=== PATIENT | male | born 1955 | race Caucasian/White ===

== ENCOUNTER → 2016-12-31 | Outpatient (CLI) | payer OTHER ==
--- NOTE | 2016-12-31 15:42 | XR ---
EXAMINATION TYPE: XR chest 2V DATE OF EXAM: 12/31/2016 HISTORY: R05 cough. REFERENCE: None. FINDINGS: The lungs are clear. Pleural spaces are clear. Heart size is normal. IMPRESSION: NORMAL CHEST.
== END | disposition home or self-care (01) ==
LOC: RADXRMAIN 14:05
PROVIDERS: ATTEND Internal Medicine Geriatric Medicine
DX: R05 Cough (principal)
CPT/HCPCS: 71020

== ENCOUNTER 2018-09-04 14:14 | Emergency (ER) | payer OTHER ==
--- NOTE | 2018-09-04 15:07 | ED ---
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 He complains of headache and hamstring pain for 3 days. Patient states he has been in [place] for the past week and has been doing a lot of walking. He states the headache is at the sides of his head primarily and is worsened with movement and bright light. He states that the headache is throbbing and feels similar to when he has had meningitis in the past. His blood pressure is elevated in the ER, however the patient states that he has taken his blood pressure medication today. Patient denies any recent fever, chills, runny nose, shortness of breath, chest pain, abdominal pain, nausea or vomiting, numbness or tingling, dysuria or hematuria, constipation or diarrhea, visual changes, dizziness, or any other complaints. ( Shelby Phelps) - Related Data Home Medications Medication Instructions Recorded Confirmed Aspirin EC [Ecotrin Low Dose] 81 mg PO HS 06/23/14 09/04/18 Atorvastatin [Lipitor] 10 mg PO HS 06/23/14 09/04/18 amLODIPine BESYLATE [Norvasc] 5 mg PO DAILY 06/23/14 09/04/18 Multivitamin/Iron/Folic Acid 1 tab PO DAILY 09/12/14 09/04/18 [Centrum Complete Multivit Tab] ALPRAZolam [Xanax] 0.25 mg PO BID PRN 09/04/18 09/04/18 Losartan Potassium 50 mg PO DAILY 09/04/18 09/04/18 Naproxen Sodium [Aleve] 220 mg PO DAILY 09/04/18 09/04/18 Temazepam [Restoril] 15 mg PO HS PRN 09/04/18 09/04/18 Previous Rx's Medication Instructions Recorded Ondansetron Odt [Zofran Odt] 4 mg PO Q8HR PRN #21 tab 09/04/18 valACYclovir HCL [Valacyclovir] 1,000 mg PO Q12HR 7 Days 09/04/18 Allergies Allergy/AdvReac Type Severity Reaction Status Date / Time venom-honey bee Allergy Rash/Hives Verified 09/04/18 16:05 [bee venom (honey bee)] Review of Systems ROS Other: All systems not noted in ROS Statement are negative. <Arsenio Bentley - Last Filed: 09/04/18 17:24> ROS Other: All systems not noted in ROS Statement are negative. <Shelby Phelps - Last Filed: 09/04/18 20:37> ROS Statement: Those systems with pertinent positive or pertinent negative responses have been documented in the HPI. Past Medical History Past Medical History: Hyperlipidemia, Hypertension, Osteoarthritis (OA), Prostate Disorder, Sleep Apnea/CPAP/BIPAP Additional Past Medical History / Comment(s): hx of having viral menigits x2 in past, pre skin ca removed, beginnings of cataracts, constipated last bm was friday05-26-16 History of Any Multi-Drug Resistant Organisms: None Reported Past Surgical History: Joint Replacement, Orthopedic Surgery, Tonsillectomy Additional Past Surgical History / Comment(s): 09/12/14 Total R hip arthroplasty. michele rotator cuff sx,06/2014 rt hip arthroscopy and osteoplasty femoral head,colonoscopy/polypectomy(benign) Past Anesthesia/Blood Transfusion Reactions: Motion Sickness, Postoperative Nausea & Vomiting (PONV) Past Psychological History: No Psychological Hx Reported Smoking Status: Current some day smoker Past Alcohol Use History: Occasional Past Drug Use History: None Reported - Past Family History Brother(s) Family Medical History: Cancer Additional Family Medical History / Comment(s): TUMOR ON ADRENAL GLAND Father Family Medical History: CVA/TIA Additional Family Medical History / Comment(s): at age 53 Mother Family Medical History: Osteoarthritis (OA) Additional Family Medical History / Comment(s): djd, knees and hip replacments. mom is alive adn at age 97 still lives by herself. <Shelby Phelps - Last Filed: 09/04/18 20:37> General Exam Limitations: no limitations General appearance: alert, in no apparent distress Head exam: Present: atraumatic, normocephalic Eye exam: Present: normal appearance, PERRL, EOMI ENT exam: Present: normal oropharynx, TM's normal bilaterally, normal external ear exam Neck exam: Present: full ROM, other (No neck pain with ROM.). Absent: tenderness Respiratory exam: Present: normal lung sounds bilaterally. Absent: wheezes, rales, rhonchi Cardiovascular Exam: Present: regular rate, normal rhythm GI/Abdominal exam: Present: soft, normal bowel sounds. Absent: distended, tenderness Extremities exam: Present: full ROM. Absent: calf tenderness Back exam: Absent: tenderness Neurological exam: Present: alert, oriented X3, CN II-XII intact. Absent: motor sensory deficit Skin exam: Present: warm, dry <Shelby Phelps - Last Filed: 09/04/18 20:37> Vital Signs 09/04/18 09/04/18 09/04/18 14:16 14:46 19:05 Temperature 97.7 F Pulse Rate 78 Respiratory 18 Rate Blood Pressure 189/101 176/108 192/110 O2 Sat by Pulse 98 96 Oximetry 09/04/18 09/04/18 09/04/18 19:10 19:20 19:30 Temperature Pulse Rate Respiratory Rate Blood Pressure 192/110 192/110 192/110 O2 Sat by Pulse 98 97 96 Oximetry 09/04/18 09/04/18 09/04/18 19:40 19:50 20:00 Temperature 98.1 F Pulse Rate 87 Respiratory 16 Rate Blood Pressure 192/110 192/110 192/110 O2 Sat by Pulse 96 96 95 Oximetry 09/04/18 09/04/18 09/04/18 20:10 20:30 20:35 Temperature Pulse Rate 82 80 Respiratory 18 18 Rate Blood Pressure 192/110 173/109 160/97 O2 Sat by Pulse 96 96 97 Oximetry Procedures - Lumbar Puncture Consent Obtained: verbal consent Indication for Procedure: headache Patient Position: sitting upright/leaning forward Skin Prep: 0.5% Chlorhexidine/Alcohol Local Anesthetic Used: Lidocaine 1% Spinal Needle Gauge: 20G Spinal Needle Length: 4in Fluid Initially Obtained: clear Complications: none Patient Tolerated Procedure: well <Arsenio Bentley - Last Filed: 09/04/18 17:24> Medical Decision Making <Arsenio Bentley - Last Filed: 09/04/18 17:24> - Lab Data Result diagrams: 09/04/18 16:40 09/04/18 16:40 <Shelby Phelps - Last Filed: 09/04/18 20:37> - Medical Decision Making I, Magdy Bentley, personally saw and examined the patient. I have reviewed and agree with the PA findings, including all diagnostic interpretations and treatment plans as written unless otherwise stated. I was present for the almanza portions of any procedures performed and the inclusive time noted for any critical care statement. I'll, Dr. Hardin will be taking over the care of this patient at 5 PM (Arsenio Bentley) CT of the brain reveals no acute intracranial process. Mild mucosal thickening , pansinusitis similar to the prior of 2016. Influenza A and B are negative. CSF Tot Nucleated Cells is 184. CSF Total Protein is 129. Awaiting culture results. Patient will be discharged with prescription for valacyclovir and Zofran. Case discussed in detail with attending physicians Dr. Bentley and Dr. Hardin. (Shelby Phelps) - Lab Data Lab Results 09/04/18 09/04/18 09/04/18 Range/Units 16:30 16:40 16:40 WBC 9.7 (3.8-10.6) k/uL RBC 4.98 (4.30-5.90) m/uL Hgb 15.5 (13.0-17.5) gm/dL Hct 46.6 (39.0-53.0) % MCV 93.7 (80.0-100.0) fL MCH 31.2 (25.0-35.0) pg MCHC 33.3 (31.0-37.0) g/dL RDW 13.3 (11.5-15.5) % Plt Count 224 (150-450) k/uL Neutrophils % 72 % Lymphocytes % 19 % Monocytes % 5 % Eosinophils % 1 % Basophils % 0 % Neutrophils # 7.0 (1.3-7.7) k/uL Lymphocytes # 1.9 (1.0-4.8) k/uL Monocytes # 0.5 (0-1.0) k/uL Eosinophils # 0.1 (0-0.7) k/uL Basophils # 0.0 (0-0.2) k/uL Sodium 142 (137-145) mmol/L Potassium 4.1 (3.5-5.1) mmol/L Chloride 107 (98-107) mmol/L Carbon Dioxide 26 (22-30) mmol/L Anion Gap 9 mmol/L BUN 12 (9-20) mg/dL Creatinine 0.92 (0.66-1.25) mg/dL Est GFR (CKD-EPI)AfAm >90 (>60 ml/min/1.73 sqM) Est GFR (CKD-EPI)NonAf 89 (>60 ml/min/1.73 sqM) Glucose 106 H (74-99) mg/dL Plasma Lactic Acid Teo (0.7-2.0) mmol/L Calcium 9.5 (8.4-10.2) mg/dL Total Bilirubin 0.8 (0.2-1.3) mg/dL AST 24 (17-59) U/L ALT 52 (21-72) U/L Alkaline Phosphatase 72 (38-126) U/L Total Protein 7.5 (6.3-8.2) g/dL Albumin 4.6 (3.5-5.0) g/dL Urine Color Urine Appearance (Clear) Urine pH (5.0-8.0) Ur Specific [place] (1.001-1.035) Urine Protein (Negative) Urine Glucose (UA) (Negative) Urine Ketones (Negative) Urine Blood (Negative) Urine Nitrite (Negative) Urine Bilirubin (Negative) Urine Urobilinogen (<2.0) mg/dL Ur Leukocyte Esterase (Negative) CSF Tube Number CSF Volume CSF Appearance CSF Color CSF RBC (0-10) u/L CSF Tot Nucleated Cells (0-5) u/L CSF Mononuclear WBCs % % CSF Polynuclear WBCs % % CSF Glucose (40-70) mg/dL CSF Total Protein (12-60) mg/dL Influenza Type A RNA Not Detected (Not Detectd) Influenza Type B (PCR) Not Detected (Not Detectd) 09/04/18 09/04/18 09/04/18 Range/Units 16:40 16:40 17:22 WBC (3.8-10.6) k/uL RBC (4.30-5.90) m/uL Hgb (13.0-17.5) gm/dL Hct (39.0-53.0) % MCV (80.0-100.0) fL MCH (25.0-35.0) pg MCHC (31.0-37.0) g/dL RDW (11.5-15.5) % Plt Count (150-450) k/uL Neutrophils % % Lymphocytes % % Monocytes % % Eosinophils % % Basophils % % Neutrophils # (1.3-7.7) k/uL Lymphocytes # (1.0-4.8) k/uL Monocytes # (0-1.0) k/uL Eosinophils # (0-0.7) k/uL Basophils # (0-0.2) k/uL Sodium (137-145) mmol/L Potassium (3.5-5.1) mmol/L Chloride (98-107) mmol/L Carbon Dioxide (22-30) mmol/L Anion Gap mmol/L BUN (9-20) mg/dL Creatinine (0.66-1.25) mg/dL Est GFR (CKD-EPI)AfAm (>60 ml/min/1.73 sqM) Est GFR (CKD-EPI)NonAf (>60 ml/min/1.73 sqM) Glucose (74-99) mg/dL Plasma Lactic Acid Teo 1.2 (0.7-2.0) mmol/L Calcium (8.4-10.2) mg/dL Total Bilirubin (0.2-1.3) mg/dL AST (17-59) U/L ALT (21-72) U/L Alkaline Phosphatase (38-126) U/L Total Protein (6.3-8.2) g/dL Albumin (3.5-5.0) g/dL Urine Color Light Yellow Urine Appearance Clear (Clear) Urine pH 6.0 (5.0-8.0) Ur Specific [place] 1.010 (1.001-1.035) Urine Protein Negative (Negative) Urine Glucose (UA) Negative (Negative) Urine Ketones Negative (Negative) Urine Blood Negative (Negative) Urine Nitrite Negative (Negative) Urine Bilirubin Negative (Negative) Urine Urobilinogen <2.0 (<2.0) mg/dL Ur Leukocyte Esterase Negative (Negative) CSF Tube Number 4 CSF Volume 1.0 CSF Appearance Clear CSF Color Colorless CSF RBC 6 (0-10) u/L CSF Tot Nucleated Cells 184 H* (0-5) u/L CSF Mononuclear WBCs % 92 % CSF Polynuclear WBCs % 8 % CSF Glucose 65 (40-70) mg/dL CSF Total Protein 129 H (12-60) mg/dL Influenza Type A RNA (Not Detectd) Influenza Type B (PCR) (Not Detectd) Disposition <BentleyArsenio - Last Filed: 09/04/18 17:24> Is patient prescribed a controlled substance at d/c from ED?: No <Shelby Phelps - Last Filed: 09/04/18 20:37> Clinical Impression: CSF abnormal Disposition: HOME SELF-CARE Condition: Good Instructions (If sedation given, give patient instructions): Acute Headache (ED ) Additional Instructions: Follow-up with your PCP in 1 to 2 days. Take valacyclovir as prescribed. Please call back for your culture results. Return to the emergency department if your symptoms worsen or other concerns. Prescriptions: Ondansetron Odt [Zofran Odt] 4 mg PO Q8HR PRN #21 tab PRN Reason: Nausea valACYclovir HCL [Valacyclovir] 1,000 mg PO Q12HR 7 Days Referrals: Khanh Gregory MD [Primary Care Provider] - 1-2 days
--- NOTE | 2018-09-04 16:11 | CT ---
EXAMINATION TYPE: CT brain wo con DATE OF EXAM: 09/04/2018 COMPARISON: 05/28/2016 HISTORY: Headache with fever after travel CT DLP: 1201.4 mGycm Automated exposure control for dose reduction was used. FINDINGS: There is symmetric prominence of the peripheral sulci and to a lesser degree of the ventricular syste m although similar to the prior of 2016. Low-lying cerebellar tonsils are similar to prior. Nino-whit e matter interface is maintained. No acute intracranial hemorrhage, midline shift or mass effect. Pun ctate dystrophic calcifications are seen within the left basal ganglia. Orbits are symmetric. Lenses are in place. There is mild mucosal thickening of the left maxillary sinus there is circumferential a nd polypoid nature. Scant mucosal thickening is seen in the right maxillary sinus is. Bilateral middl e nasal turbinate nonobstructive angus bullosa are seen. Mild mucosal thickening is present within t he frontal and ethmoid sinuses. Mastoid air cells are well aerated. Calvarium appears intact. IMPRESSION: 1. NO ACUTE INTRACRANIAL PROCESS. 2. MILD MUCOSAL THICKENING, PANSINUSITIS SIMILAR TO THE PRIOR OF 2016.
[2018-09-04 17:39] LABS: Appearance,CSF Clear; CSF Tube Number 4
[2018-09-04 17:41] LABS: Basophils % (A) 0 %; Eosinophils # (A) 0.1 k/uL (0-0.7); Eosinophils % (A) 1 %; HCT 46.6 % (39.0-53.0); HGB 15.5 gm/dL (13.0-17.5); Lymphocytes # (A) 1.9 k/uL (1.0-4.8); Lymphocytes % (A) 19 %; MCH 31.2 pg (25.0-35.0); MCHC 33.3 g/dL (31.0-37.0); MCV 93.7 fL (80.0-100.0); Mean Platelet Volume 6.9; Monocytes # (A) 0.5 k/uL (0-1.0); Monocytes % (A) 5 %; Neutrophils % (A) 72 %; Platelet Count 224 k/uL (150-450); RBC 4.98 m/uL (4.30-5.90); RDW 13.3 % (11.5-15.5); WBC 9.7 k/uL (3.8-10.6)
[2018-09-04 17:42] LABS: Appearance,Urine Clear (Clear); Bilirubin,Urine Negative (Negative); Blood,Urine Negative (Negative); Color,Urine Light Yellow; Glucose,Urine (UA) Negative (Negative); Ketones,Urine Negative (Negative); Leukocyte Esterase,Urine Negative (Negative); Nitrite,Urine Negative (Negative); Protein,Urine Negative (Negative); Urobilinogen,Urine <2.0 mg/dL (<2.0)
[2018-09-04 17:57] LABS: ALT 52 U/L (21-72); AST 24 U/L (17-59); Albumin 4.6 g/dL (3.5-5.0); Alkaline Phosphatase 72 U/L (38-126); Anion Gap 9 mmol/L; Blood Urea Nitrogen 12 mg/dL (9-20); Calcium 9.5 mg/dL (8.4-10.2); Carbon Dioxide 26 mmol/L (22-30); Chloride 107 mmol/L (98-107); Glucose 106 mg/dL (74-99); Potassium 4.1 mmol/L (3.5-5.1); Sodium 142 mmol/L (137-145); Total Bilirubin 0.8 mg/dL (0.2-1.3); Total Protein 7.5 g/dL (6.3-8.2)
[2018-09-04 17:59] LABS: Glucose,CSF 65 mg/dL (40-70); Total Protein,CSF 129 mg/dL (12-60)
[2018-09-04 18:10] LABS: Red Blood Cell,CSF 6 u/L (0-10)
[2018-09-04 18:11] LABS: Nucleated Cells, CSF 184 u/L (0-5)
[2018-09-04 18:22] LABS: Diff, Total Cells Cnt, CSF 100; Mononuclear WBC,CSF 92 %; Polynuclear WBC,CSF 8 %
[2018-09-04] MEDS ORDERED: SODIUM CHLORIDE 0.9% 1,000 ML IV SCH (18:30)
[2018-09-04] MEDS ORDERED: ACYCLOVIR SODIUM 1,000 MG in SODIUM CHLORIDE 0.9% 250 ML IV ONE (18:30)
[2018-09-04] MEDS ORDERED: ONDANSETRON 4 MG/2 ML VIAL IVP STA (19:19)
[2018-09-04] MEDS ORDERED: LABETALOL SYRINGE 5 MG/ML IVP STA (20:23)
[2018-09-04 20:32] VITALS: RESP 18
[2018-09-04 21:00] VITALS: BP 159/101; PULSE 70; TEMP 98
[2018-09-05] MEDS ORDERED: ACYCLOVIR SODIUM 1,000 MG in SODIUM CHLORIDE 0.9% 250 ML IV SCH (04:00)
== END 2018-09-04 21:00 | disposition home or self-care (01) ==
LOC: EC 14:14
DX: R83.9 Unspecified abnormal finding in cerebrospinal fluid (principal); J32.4 Chronic pansinusitis; E78.5 Hyperlipidemia, unspecified; I10 Essential (primary) hypertension; M19.90 Unspecified osteoarthritis, unspecified site; G47.30 Sleep apnea, unspecified; F17.200 Nicotine dependence, unspecified, uncomplicated; Z79.82 Long term (current) use of aspirin; Z79.899 Other long term (current) drug therapy; Z91.030 Bee allergy status; Z96.641 Presence of right artificial hip joint; Z85.828 Personal history of other malignant neoplasm of skin
CPT/HCPCS: 99284; 62270; 96365; 96375 ×2; 36415; 87529; 84157; 80053; 82945; 83605; 85025; 89050; 81003; 87070; 87205; 87502; 70450; J0133; J2405

== ENCOUNTER 2018-09-07 16:21 | Inpatient (IN) | payer OTHER ==
--- NOTE | 2018-09-07 17:34 | ED ---
Weakness HPI - General Chief complaint: Recheck/Abnormal Lab/Rx Stated complaint: Sent by Nicole Time Seen by Provider: 09/07/18 17:28 Source: patient, RN notes reviewed, old records reviewed Mode of arrival: ambulatory Limitations: no limitations - History of Present Illness Initial comments: This is a 63-year-old male the ER for evaluation. Patient resents today for evaluation of headache and weakness. Patient was seen prior in the hospital for evaluation regarding headache. Patient had LP today. Patient was called today for LP results secondary to abnormal lumbar puncture. Patient himself states he feels marginally well denies current fever, no nausea vomiting no chest pain no bowel pain. MD Complaint: generalized weakness (And headache) -: days(s) Location: generalized Severity: mild Severity scale (1-10): 2 Consistency: constant Improves with: none Worsens with: none Context: new medication, recent illness Associated Symptoms: fever/chills, headaches, myalgias - Related Data Home Medications Medication Instructions Recorded Confirmed Aspirin EC [Ecotrin Low Dose] 81 mg PO HS 06/23/14 09/07/18 Atorvastatin [Lipitor] 10 mg PO HS 06/23/14 09/07/18 amLODIPine BESYLATE [Norvasc] 5 mg PO DAILY 06/23/14 09/07/18 Multivitamin/Iron/Folic Acid 1 tab PO DAILY 09/12/14 09/07/18 [Centrum Complete Multivit Tab] ALPRAZolam [Xanax] 0.25 mg PO BID PRN 09/04/18 09/07/18 Losartan Potassium 50 mg PO DAILY 09/04/18 09/07/18 Naproxen Sodium [Aleve] 220 mg PO DAILY 09/04/18 09/07/18 Temazepam [Restoril] 15 mg PO HS PRN 09/04/18 09/07/18 Previous Rx's Medication Instructions Recorded Ondansetron Odt [Zofran Odt] 4 mg PO Q8HR PRN #21 tab 09/04/18 valACYclovir HCL [Valacyclovir] 1,000 mg PO Q12HR 7 Days 09/04/18 Allergies Allergy/AdvReac Type Severity Reaction Status Date / Time venom-honey bee Allergy Rash/Hives Verified 09/07/18 17:49 [bee venom (honey bee)] Review of Systems ROS Statement: Those systems with pertinent positive or pertinent negative responses have been documented in the HPI. ROS Other: All systems not noted in ROS Statement are negative. Past Medical History Past Medical History: Hyperlipidemia, Hypertension, Osteoarthritis (OA), Prostate Disorder, Sleep Apnea/CPAP/BIPAP Additional Past Medical History / Comment(s): hx of having viral menigits x2 in past, pre skin ca removed, beginnings of cataracts, constipated last bm was friday05-26-16 History of Any Multi-Drug Resistant Organisms: None Reported Past Surgical History: Joint Replacement, Orthopedic Surgery, Tonsillectomy Additional Past Surgical History / Comment(s): 09/12/14 Total R hip arthroplasty. michele rotator cuff sx,06/2014 rt hip arthroscopy and osteoplasty femoral head,colonoscopy/polypectomy(benign) Past Anesthesia/Blood Transfusion Reactions: Motion Sickness, Postoperative Nausea & Vomiting (PONV) Past Psychological History: No Psychological Hx Reported Smoking Status: Current some day smoker Past Alcohol Use History: Occasional Past Drug Use History: None Reported - Past Family History Brother(s) Family Medical History: Cancer Additional Family Medical History / Comment(s): TUMOR ON ADRENAL GLAND Father Family Medical History: CVA/TIA Additional Family Medical History / Comment(s): at age 53 Mother Family Medical History: Osteoarthritis (OA) Additional Family Medical History / Comment(s): djd, knees and hip replacments. mom is alive adn at age 97 still lives by herself. General Exam Limitations: no limitations General appearance: alert, in no apparent distress Head exam: Present: atraumatic, normocephalic, normal inspection Eye exam: Present: normal appearance, PERRL, EOMI. Absent: scleral icterus, conjunctival injection, periorbital swelling ENT exam: Present: normal exam, mucous membranes moist Neck exam: Present: normal inspection. Absent: tenderness, meningismus, lymphadenopathy Respiratory exam: Present: normal lung sounds bilaterally. Absent: respiratory distress, wheezes, rales, rhonchi, stridor Cardiovascular Exam: Present: regular rate, normal rhythm, normal heart sounds. Absent: systolic murmur, diastolic murmur, rubs, gallop, clicks GI/Abdominal exam: Present: soft, normal bowel sounds. Absent: distended, tenderness, guarding, rebound, rigid Extremities exam: Present: normal inspection, full ROM, normal capillary refill. Absent: tenderness, pedal edema, joint swelling, calf tenderness Back exam: Present: normal inspection Neurological exam: Present: alert, oriented X3, CN II-XII intact Psychiatric exam: Present: normal affect, normal mood Skin exam: Present: warm, dry, intact, normal color. Absent: rash Course Vital Signs 09/07/18 16:57 Temperature 98.4 F Pulse Rate 78 Respiratory 18 Rate Blood Pressure 179/80 O2 Sat by Pulse 97 Oximetry - Reevaluation(s) Reevaluation #1: 09/07/18 19:08 Medical record is reviewed as well as CSF Reevaluation #2: 09/07/18 19:08 Patient is to be admitted on acyclovir EKG Findings - EKG Comments: EKG Findings:: EKG shows sinus rhythm rate of 64, FL 176, QRS 96, QTc 414 Medical Decision Making - Medical Decision Making 63 male the ER for evaluation presents today for evaluation regarding follow-up of lab results. Positive CSF for HSV, patient be admitted for herpes encephalitis - Lab Data Result diagrams: 09/07/18 18:39 Lab Results 09/07/18 Range/Units 18:39 WBC 7.2 (3.8-10.6) k/uL RBC 5.10 (4.30-5.90) m/uL Hgb 16.3 (13.0-17.5) gm/dL Hct 47.3 (39.0-53.0) % MCV 92.8 (80.0-100.0) fL MCH 31.9 (25.0-35.0) pg MCHC 34.4 (31.0-37.0) g/dL RDW 13.2 (11.5-15.5) % Plt Count 226 (150-450) k/uL Neutrophils % 58 % Lymphocytes % 29 % Monocytes % 6 % Eosinophils % 4 % Basophils % 1 % Neutrophils # 4.2 (1.3-7.7) k/uL Lymphocytes # 2.1 (1.0-4.8) k/uL Monocytes # 0.4 (0-1.0) k/uL Eosinophils # 0.3 (0-0.7) k/uL Basophils # 0.0 (0-0.2) k/uL Disposition Clinical Impression: Meningitis, Encephalitis due to human herpes simplex virus (HSV) Disposition: ADMITTED IP TO THIS HOSP Condition: Fair Is patient prescribed a controlled substance at d/c from ED?: No Referrals: Khanh Gregory MD [Primary Care Provider] - 1-2 days
[2018-09-07] MEDS ORDERED: SODIUM CHLORIDE 0.9% 1,000 ML IV STA ×2 (17:58)
[2018-09-07] MEDS ORDERED: SODIUM CHLORIDE 0.9% 500 ML 500 ML IV STA (17:58)
[2018-09-07 18:53] LABS: Basophils % (A) 1 %; Eosinophils # (A) 0.3 k/uL (0-0.7); Eosinophils % (A) 4 %; HCT 47.3 % (39.0-53.0); HGB 16.3 gm/dL (13.0-17.5); Lymphocytes # (A) 2.1 k/uL (1.0-4.8); Lymphocytes % (A) 29 %; MCH 31.9 pg (25.0-35.0); MCHC 34.4 g/dL (31.0-37.0); MCV 92.8 fL (80.0-100.0); Mean Platelet Volume 7.3; Monocytes # (A) 0.4 k/uL (0-1.0); Monocytes % (A) 6 %; Neutrophils # (A) 4.2 k/uL (1.3-7.7); Neutrophils % (A) 58 %; Platelet Count 226 k/uL (150-450); RDW 13.2 % (11.5-15.5); WBC 7.2 k/uL (3.8-10.6)
[2018-09-07 19:07] LABS: INR 0.9 (<1.2); Partial Thromboplastin Time 25.9 sec (22.0-30.0); Prothrombin Time 10.2 sec (9.0-12.0)
[2018-09-07 19:10] LABS: Appearance,Urine Clear (Clear); Bilirubin,Urine Negative (Negative); Blood,Urine Negative (Negative); Color,Urine Light Yellow; Glucose,Urine (UA) Negative (Negative); Ketones,Urine Negative (Negative); Leukocyte Esterase,Urine Negative (Negative); Nitrite,Urine Negative (Negative); Protein,Urine Negative (Negative); Specific Gravity,Urine 1.012 (1.001-1.035); Urobilinogen,Urine <2.0 mg/dL (<2.0)
[2018-09-07 19:12] LABS: Albumin 4.7 g/dL (3.5-5.0); Calcium 9.8 mg/dL (8.4-10.2); Total Bilirubin 0.8 mg/dL (0.2-1.3); Total Protein 7.7 g/dL (6.3-8.2)
[2018-09-07] MEDS ORDERED: LABETALOL SYRINGE 5 MG/ML IVP STA (19:41)
[2018-09-07] MEDS: ACYCLOVIR SODIUM IV SCH (22:38)
[2018-09-07] MEDS: SODIUM CHLORIDE 0.9% IV SCH (22:38)
[2018-09-07 23:02] VITALS: BMI 31.0
[2018-09-08] MEDS: SODIUM CHLORIDE 0.9% IV SCH ×3 (05:58→21:01)
[2018-09-08] MEDS: ACYCLOVIR SODIUM IV SCH ×3 (05:58→21:01)
[2018-09-08] MEDS: LOSARTAN 50 MG TAB PO SCH (08:15)
[2018-09-08] MEDS: amLODIPine 5 MG TAB PO SCH (08:15)
[2018-09-08] MEDS ORDERED: ALPRAZolam 0.25 MG TAB PO PRN (09:00)
--- NOTE | 2018-09-08 09:01 | P.CONS ---
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 He gives history of viral meningitis probably 8 years ago and previously 29 years ago. He states he was in [place] for one week on business and then developed throbbing type headache while he was there including a backache. He denies having any fever or chills. He felt was similar to the type of headache he had before with meningitis. He came back home on Friday and came into [facility] emergency center where he was found to be afebrile, influenza testing was negative CT of the brain was negative. Lumbar puncture was done and patient was discharged on valacyclovir and Zofran. His culture showed no organisms and no growth after 72 hours. 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 He states he has been taking the valacyclovir at home and at this time his headache is only an occasional "twing." Patient has been started on IV acyclovir. Review of Systems All systems: negative Constitutional: Reports fatigue, Reports weakness, Denies anorexia, Denies chills, Denies fever, Denies poor appetite, Denies weight loss Eyes: denies blurred vision, denies pain, denies photophobia Ears, nose, mouth and throat: Reports headache, Denies dysphagia, Denies mouth pain, Denies nasal congestion, Denies nasal discharge, Denies sore throat, Denies vertigo Cardiovascular: Denies chest pain, Denies dyspnea on exertion, Denies edema, Denies leg edema, Denies shortness of breath, Denies syncope Respiratory: Denies cough, Denies cough with sputum, Denies dyspnea, Denies excessive sputum, Denies hemoptysis, Denies home oxygen, Denies wheezing Gastrointestinal: Denies abdominal pain, Denies diarrhea, Denies loss of appetite, Denies melena, Denies nausea, Denies vomiting Genitourinary: Denies dysuria, Denies urinary frequency, Denies urinary retention Musculoskeletal: Denies frequent falls, Denies gait dysfunction, Denies muscle weakness, Denies myalgias Integumentary: Denies color changes, Denies pruritus, Denies rash, Denies wounds Neurological: Denies aphasia, Denies change in mentation, Denies change in speech, Denies confusion, Denies gait dysfunction, Denies numbness, Denies seizures, Denies vertigo, Denies weakness Psychiatric: Denies anxiety, Denies depression Endocrine: Denies fatigue, Denies weight change Past Medical History Past Medical History: Hyperlipidemia, Hypertension, Osteoarthritis (OA), Prostate Disorder, Sleep Apnea/CPAP/BIPAP Additional Past Medical History / Comment(s): hx of having viral menigits x2 in past, pre skin ca removed, beginnings of cataracts, constipated last bm was friday05-26-16 History of Any Multi-Drug Resistant Organisms: None Reported Past Surgical History: Joint Replacement, Orthopedic Surgery, Tonsillectomy Additional Past Surgical History / Comment(s): 09/12/14 Total R hip arthroplasty. michele rotator cuff sx,06/2014 rt hip arthroscopy and osteoplasty femoral head,colonoscopy/polypectomy(benign) Past Anesthesia/Blood Transfusion Reactions: Motion Sickness, Postoperative Nausea & Vomiting (PONV) Past Psychological History: No Psychological Hx Reported Additional Psychological History / Comment(s): . Smoking Status: Never smoker Past Alcohol Use History: Occasional Additional Past Alcohol Use History / Comment(s): started smoking cig at age 16 and quit by age 26,then 2001 started to smoke the occ cigar while playing golf. No illicit drug use. 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 He occasionally travels to [place] on business. Past Drug Use History: None Reported Additional Drug Use History / Comment(s): SMOKES OCCASIONAL CIGAR - Past Family History Brother(s) Family Medical History: Cancer Additional Family Medical History / Comment(s): TUMOR ON ADRENAL GLAND Father Family Medical History: CVA/TIA Additional Family Medical History / Comment(s): at age 53 Mother Family Medical History: Osteoarthritis (OA) Additional Family Medical History / Comment(s): djd, knees and hip replacments. mom is alive adn at age 97 still lives by herself. Medications and Allergies Home Medications Medication Instructions Recorded Confirmed Type Aspirin EC [Ecotrin Low Dose] 81 mg PO HS 06/23/14 09/07/18 History Atorvastatin [Lipitor] 10 mg PO HS 06/23/14 09/07/18 History amLODIPine BESYLATE [Norvasc] 5 mg PO DAILY 06/23/14 09/07/18 History Multivitamin/Iron/Folic Acid 1 tab PO DAILY 09/12/14 09/07/18 History [Centrum Complete Multivit Tab] ALPRAZolam [Xanax] 0.25 mg PO BID PRN 09/04/18 09/07/18 History Losartan Potassium 50 mg PO DAILY 09/04/18 09/07/18 History Naproxen Sodium [Aleve] 220 mg PO DAILY 09/04/18 09/07/18 History Ondansetron Odt [Zofran Odt] 4 mg PO Q8HR PRN #21 tab 09/04/18 09/07/18 Rx Temazepam [Restoril] 15 mg PO HS PRN 09/04/18 09/07/18 History valACYclovir HCL [Valacyclovir] 1,000 mg PO Q12HR 7 Days 09/04/18 09/07/18 Rx Allergies Allergy/AdvReac Type Severity Reaction Status Date / Time venom-honey bee Allergy Rash/Hives Verified 09/07/18 17:49 [bee venom (honey bee)] Physical Exam Vitals: Vital Signs Temp Pulse Pulse Resp BP BP Pulse Ox 09/08/18 07:38 99.1 F 64 16 137/77 96 09/07/18 23:00 97.3 F L 74 18 160/92 99 09/07/18 20:30 61 23 163/92 09/07/18 19:48 66 16 177/87 94 L 09/07/18 19:42 67 16 186/96 98 09/07/18 19:00 67 18 179/107 96 09/07/18 18:53 67 18 96 09/07/18 16:57 98.4 F 78 18 179/80 97 Intake and Output 09/07/18 09/08/18 09/08/18 22:59 06:59 14:59 Other: # Voids 2 Weight 109.588 kg Gen: This is a 63-year-old male. He is sitting up in bed and appears to be in no acute distress. HEENT: Head is atraumatic, normocephalic. Pupils equal, round. Sclerae is anicteric. Conjunctiva pink. Mucous members of the mouth are moist. Dentition is in good order. NECK: Supple. No nuchal rigidity. No JVD. No lymphadenopathy. No thyromegaly. LUNGS: Clear to auscultation. No wheezes or rhonchi. No intercostal retractions. HEART: Regular rate and rhythm. Systolic murmur. ABDOMEN: Soft. Bowel sounds are present. No masses. No tenderness. EXTREMITIES: No pedal edema. No calf tenderness. Dorsalis pedis +2 bilaterally. NEUROLOGICAL: Patient is awake, alert and oriented x3. Cranial nerves 2 through 12 are grossly intact. Results Results: Laboratory Results WBC 7.2 k/uL (3.8-10.6) 09/07/18 18:39 RBC 5.10 m/uL (4.30-5.90) 09/07/18 18:39 Hgb 16.3 gm/dL (13.0-17.5) 09/07/18 18:39 Hct 47.3 % (39.0-53.0) 09/07/18 18:39 MCV 92.8 fL (80.0-100.0) 09/07/18 18:39 MCH 31.9 pg (25.0-35.0) 09/07/18 18: MCHC 34.4 g/dL (31.0-37.0) 09/07/18 18:39 RDW 13.2 % (11.5-15.5) 09/07/18 18:39 Plt Count 226 k/uL (150-450) 09/07/18 18:39 Neutrophils % 58 % 09/07/18 18:39 Lymphocytes % 29 % 09/07/18 18:39 Monocytes % 6 % 09/07/18 18:39 Eosinophils % 4 % 09/07/18 18: Basophils % 1 % 09/07/18 18:39 Neutrophils # 4.2 k/uL (1.3-7.7) 09/07/18 18:39 Lymphocytes # 2.1 k/uL (1.0-4.8) 09/07/18 18:39 Monocytes # 0.4 k/uL (0-1.0) 09/07/18 18: Eosinophils # 0.3 k/uL (0-0.7) 09/07/18 18: Basophils # 0.0 k/uL (0-0.2) 09/07/18 18:39 PT 10.2 sec (9.0-12.0) 09/07/18 18:39 INR 0.9 (<1.2) 09/07/18 18:39 APTT 25.9 sec (22.0-30.0) 09/07/18 18:39 Sodium 140 mmol/L (137-145) 09/07/18 18:39 Potassium 4.0 mmol/L (3.5-5.1) 09/07/18 18:39 Chloride 105 mmol/L (98-107) 09/07/18 18:39 Carbon Dioxide 25 mmol/L (22-30) 09/07/18 18:39 Anion Gap 10 mmol/L 09/07/18 18:39 BUN 27 mg/dL (9-20) H 09/07/18 18:39 Creatinine 1.08 mg/dL (0.66-1.25) 09/07/18 18:39 Est GFR (CKD-EPI)AfAm 85 (>60 ml/min/1.73 sqM) 09/07/18 18:39 Est GFR (CKD-EPI)NonAf 73 (>60 ml/min/1.73 sqM) 09/07/18 18:39 Glucose 111 mg/dL (74-99) H 09/07/18 18:39 Plasma Lactic Acid Teo 1.0 mmol/L (0.7-2.0) 09/07/18 18:39 Calcium 9.8 mg/dL (8.4-10.2) 09/07/18 18:39 Phosphorus 4.0 mg/dL (2.5-4.5) 09/07/18 18:39 Magnesium 2.0 mg/dL (1.6-2.3) 09/07/18 18:39 Total Bilirubin 0.8 mg/dL (0.2-1.3) 09/07/18 18:39 AST 33 U/L (17-59) 09/07/18 18:39 ALT 44 U/L (21-72) 09/07/18 18:39 Alkaline Phosphatase 75 U/L (38-126) 09/07/18 18:39 Troponin I <0.012 ng/mL (0.000-0.034) 09/07/18 18:39 Total Protein 7.7 g/dL (6.3-8.2) 09/07/18 18:39 Albumin 4.7 g/dL (3.5-5.0) 09/07/18 18:39 Urine Color Light Yellow 09/07/18 19:01 Urine Appearance Clear (Clear) 09/07/18 19:01 Urine pH 6.0 (5.0-8.0) 09/07/18 19:01 Ur Specific [place] 1.012 (1.001-1.035) 09/07/18 19:01 Urine Protein Negative (Negative) 09/07/18 19:01 Urine Glucose (UA) Negative (Negative) 09/07/18 19: Urine Ketones Negative (Negative) 09/07/18 19: Urine Blood Negative (Negative) 09/07/18 19: Urine Nitrite Negative (Negative) 09/07/18 19: Urine Bilirubin Negative (Negative) 09/07/18 19: Urine Urobilinogen <2.0 mg/dL (<2.0) 09/07/18 19:01 Ur Leukocyte Esterase Negative (Negative) 09/07/18 19:01 CBC & Chem 7: 09/07/18 18:39 09/07/18 18:39 Labs: Abnormal Lab Results - Last 24 Hours (Table) 09/07/18 Range/Units 18:39 BUN 27 H (9-20) mg/dL Glucose 111 H (74-99) mg/dL Microbiology - Last 24 Hours (Table) 09/07/18 19:39 Urine Culture - Preliminary Urine,Voided Assessment and Plan Plan: This is a 63-year-old male who presented to the hospital with neck pain, back pain status post diagnostic lumbar puncture positive for HSV-2 meningitis. Patient is currently on IV acyclovir. Continue supportive care. Further recommendations as patient progresses. The above dictated assessment and findings were discussed with Dr. Sharif. The impression and plan of care have been directed as dictated. Dayna Barrera nurse practitioner acting as scribe for Dr. Sharif.
--- NOTE | 2018-09-08 12:51 | P.HPIM ---
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 Patient presented to the emergency department at [facility] on Friday with mild headache slight soreness behind his leg from the ankle to the thigh combined with mild photophobia at the time. LP was done the fluid was clear with few white blood cell. Patient was feeling good and clinically was doing well decided to do Valtrex and send him home with culture was done in the meanwhile and was called in positive for Friday. Patient was contacted on 09-07 and instructed to come to the emergency department be hospitalized with HSV 2 meningitis, was started on 2 g of Valtrex every 8 hours consult infectious disease and admit patient to the hospital. Clinically still feeling good felt better than Friday no fever or chills his soreness in the legs has improved significantly his photophobia is much better but continued to have very mild degree of headache only. Review of Systems CONSTITUTIONAL: Well-developed no acute respiratory distress. Positive headache EYES: No icterus sclerae, no conjunctivitis. EARS, NOSE, MOUTH, THROAT, and FACE: No sore throat, lymphadenopathy, carotid bruits or deformity. RESPIRATORY: No SOB cough or wheezes. CARDIOVASCULAR: No CP, Palpitation, PND, Orthopnea, or angina. GASTROINTESTINAL: No Abd pain, Nausea or vomiting, no Diarrhea or constipation, No GI Bleed, no distention or masses. GENITOURINARY: Negative for Hematuria or UTI, no kidney stones. INTEGUMENT/BREAST: Negative for any muscular injury with mild osteoarthritis.. HEMATOLOGIC/LYMPHATIC: Negative for bleed or purpura. MUSCULOSKELTAL: Negative for Myalgia or arthralgia. NEURLOGICAL: Viral meningitis, headache, photophobia BEHAVIORAL/PSYCH: Negative. ENDOCRINE: Negative. Past Medical History Past Medical History: Hyperlipidemia, Hypertension, Osteoarthritis (OA), Prostate Disorder, Sleep Apnea/CPAP/BIPAP Additional Past Medical History / Comment(s): hx of having viral menigits x2 in past, pre skin ca removed, beginnings of cataracts, constipated last bm was friday05-26-16 History of Any Multi-Drug Resistant Organisms: None Reported Past Surgical History: Joint Replacement, Orthopedic Surgery, Tonsillectomy Additional Past Surgical History / Comment(s): 09/12/14 Total R hip arthroplasty. michele rotator cuff sx,06/2014 rt hip arthroscopy and osteoplasty femoral head,colonoscopy/polypectomy(benign) Past Anesthesia/Blood Transfusion Reactions: Motion Sickness, Postoperative Nausea & Vomiting (PONV) Past Psychological History: No Psychological Hx Reported Additional Psychological History / Comment(s): . Smoking Status: Never smoker Past Alcohol Use History: Occasional Additional Past Alcohol Use History / Comment(s): started smoking cig at age 16 and quit by age 26,then 2000 started to smoke the occ cigar while playing golf. No illicit drug use. 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 Past Drug Use History: None Reported Additional Drug Use History / Comment(s): SMOKES OCCASIONAL CIGAR - Past Family History Brother(s) Family Medical History: Cancer Additional Family Medical History / Comment(s): TUMOR ON ADRENAL GLAND Father Family Medical History: CVA/TIA Additional Family Medical History / Comment(s): at age 53 Mother Family Medical History: Osteoarthritis (OA) Additional Family Medical History / Comment(s): djd, knees and hip replacments. mom is alive adn at age 97 still lives by herself. Medications and Allergies Home Medications Medication Instructions Recorded Confirmed Type Aspirin EC [Ecotrin Low Dose] 81 mg PO HS 06/23/14 09/07/18 History Atorvastatin [Lipitor] 10 mg PO HS 06/23/14 09/07/18 History amLODIPine BESYLATE [Norvasc] 5 mg PO DAILY 06/23/14 09/07/18 History Multivitamin/Iron/Folic Acid 1 tab PO DAILY 09/12/14 09/07/18 History [Centrum Complete Multivit Tab] ALPRAZolam [Xanax] 0.25 mg PO BID PRN 09/04/18 09/07/18 History Losartan Potassium 50 mg PO DAILY 09/04/18 09/07/18 History Naproxen Sodium [Aleve] 220 mg PO DAILY 09/04/18 09/07/18 History Ondansetron Odt [Zofran Odt] 4 mg PO Q8HR PRN #21 tab 09/04/18 09/07/18 Rx Temazepam [Restoril] 15 mg PO HS PRN 09/04/18 09/07/18 History valACYclovir HCL [Valacyclovir] 1,000 mg PO Q12HR 7 Days 09/04/18 09/07/18 Rx Allergies Allergy/AdvReac Type Severity Reaction Status Date / Time venom-honey bee Allergy Rash/Hives Verified 09/07/18 17:49 [bee venom (honey bee)] Physical Exam Vitals: Vital Signs Temp Pulse Pulse Resp BP BP Pulse Ox 09/08/18 08:00 16 09/08/18 07:38 99.1 F 64 16 137/77 96 09/07/18 23:00 97.3 F L 74 18 160/92 99 09/07/18 20:30 61 23 163/92 09/07/18 19:48 66 16 177/87 94 L 09/07/18 19:42 67 16 186/96 98 09/07/18 19:00 67 18 179/107 96 09/07/18 18:53 67 18 96 09/07/18 16:57 98.4 F 78 18 179/80 97 Intake and Output 09/07/18 09/08/18 09/08/18 22:59 06:59 14:59 Other: Voiding Method Toilet # Voids 2 Weight 109.588 kg General Appearance: Alert, cooperative, no distress, appears stated age. Complaining of mild headache Neck HEENT: Supple, no lymphadenopathy, no thyroid enlargement, no carotid bruits. No neck rigidity Lungs: Clear to auscultation without crackles or wheezes no rhonchi, no deformity. Chest Wall: Chest wall normal expansion with deep inspiration no tenderness and no deformity was found on exam, no costochondral pain or discomfort. Heart: Regular rate and rhythm, S1, S2 normal, no murmur, rub or gallop. Back: Symmetric, no curvature, ROM normal, no CVA tenderness. Abdomen: Soft, non-tender, bowel sounds active all four quadrants, no masses, no organomegaly. Extremities: Extremities normal, atraumatic, no cyanosis or edema. No more soreness or complaint of myalgia in the lower part of his legs. Pulses: 2+ and symmetric. Skin: Skin color, texture, tugor normal, no rashes or lesions. Neurologic: Alert oriented x3 cranial nerves II through XII intact, no motor deficit, no abnormal balance or gait. Results CBC & Chem 7: 09/07/18 18:39 09/07/18 18:39 Labs: Abnormal Lab Results - Last 24 Hours (Table) 09/07/18 Range/Units 18:39 BUN 27 H (9-20) mg/dL Glucose 111 H (74-99) mg/dL Microbiology - Last 24 Hours (Table) 09/07/18 19:39 Urine Culture - Preliminary Urine,Voided Thrombosis Risk Factor Assmnt - DVT/VTE Prophylaxis DVT/VTE Prophylaxis: Pharmacologic Prophylaxis ordered, Mechanical Prophylaxis ordered Assessment and Plan Plan: 1 HSV 2 meningitis: Patient was hospitalized started on Valtrex continue hydration, continue to treat his headache consult infectious disease and watch patient hemodynamic status along with his physical exam daily. 2 severe headache: Responding well to low-dose of hydrocodone. 3 hypertension: Remain on amlodipine 5 mg a day losartan 50 mg daily. 4 hyperlipidemia: Remain on atorvastatin 10 mg daily. 5 mild anxiety: Has been on Xanax 0.25 mg twice a day as needed. 6 hyperglycemia: Has been off metformin completely. 7 GI prophylaxis: Patient will be on Pepcid 20 mg daily. 8 DVT prophylaxis: Early mobilization and knee-high JOVANI hose will be done. CODE STATUS: Full code. Admit patient to inpatient status for more than 2 nights.
[2018-09-08] MEDS ORDERED: HYDROcodone/APAP 5-325MG 1 EACH TAB PO PRN (12:52)
--- NOTE | 2018-09-08 20:24 | P.CON ---
Consult Note - . 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 He gives history of viral meningitis probably 8 years ago and previously 29 years ago. He states he was in [place] for one week on business and then developed throbbing type headache while he was there including a backache. He denies having any fever or chills. He felt was similar to the type of headache he had before with meningitis. He came back home on Friday and came into [facility] emergency center where he was found to be afebrile, influenza testing was negative CT of the brain was negative. Lumbar puncture was done and patient was discharged on valacyclovir and Zofran. His culture showed no organisms and no growth after 72 hours. 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 He states he has been taking the valacyclovir at home and at this time his headache is only an occasional "twing." Patient has been started on IV acyclovir. Please see the consult note is dictated by nurse practitioner Mrs. Dayna Barrera. This pleasant 63-year-old man relates that he's just returned from a trip in [place] where he was there for work. Was highly stressful trip. Even before he completely got back to home he started to feel poorly with a bit of a headache. Upon his arrival he had headache some stiffness to his neck and did not feel well. He has a history of prior HSV2 meningitis consequently presented to the emergency center. A lumbar puncture was performed in the which was clear and constantly he was discharged home on oral Valtrex. The CSF came back positive for herpes simplex virus 2 and counseling was called back to hospital and intravenous acyclovir was started. The patient forcefully is starting to feel considerably better at this point in time. Plan for now will be to complete 3 doses of intravenous acyclovir especially since he is starting to show resolution of his symptoms. He overall is feeling better. We'll then complete 7 days of Valtrex in the home setting. The most significant part of the conversation will also around what to do if he has recurrent symptoms. The patient should have a course of Valtrex available for him in the home setting to start at the onset of symptoms. As long as they are the same as prior events Valtrex alone should be enough. It however he feels concerned or feels worse than usual certainly reporting to Hospital is preferred. Given the infrequent nature of the episodes it does not justify daily doses of antiviral therapy. Patient agrees to symptomatic treatment approach. If the frequency of the outbreaks changes with then become more reasonable to consider daily suppressive therapy. I agree with evaluation, assessment and plan as dictated by nurse practitioner Mrs. Dayna Barrera.
[2018-09-08] MEDS ORDERED: ATORVASTATIN 10 MG TAB PO SCH (21:00)
[2018-09-08] MEDS ORDERED: ASPIRIN 81 MG PO SCH (21:00)
[2018-09-08 22:49] VITALS: PULSE 69
[2018-09-09] MEDS: SODIUM CHLORIDE 0.9% IV SCH (05:56)
[2018-09-09] MEDS: ACYCLOVIR SODIUM IV SCH (05:56)
[2018-09-09 07:31] VITALS: BP 141/83; RESP 16; TEMP 99.1
[2018-09-09] MEDS: LOSARTAN 50 MG TAB PO SCH (08:47)
[2018-09-09] MEDS: amLODIPine 5 MG TAB PO SCH (08:47)
[2018-09-09] MEDS ORDERED: FAMOTIDINE 20 MG TAB PO SCH (09:00)
--- NOTE | 2018-09-10 08:06 | P.DS ---
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 Patient presented to the emergency department at [facility] on Friday with mild headache slight soreness behind his leg from the ankle to the thigh combined with mild photophobia at the time. LP was done the fluid was clear with few white blood cell. Patient was feeling good and clinically was doing well decided to do Valtrex and send him home with culture was done in the meanwhile and was called in positive for Friday. Patient was contacted on 09-07 and instructed to come to the emergency department be hospitalized with HSV 2 meningitis, was started on 2 g of Valtrex every 8 hours consult infectious disease and admit patient to the hospital. Clinically still feeling good felt better than Friday no fever or chills his soreness in the legs has improved significantly his photophobia is much better but continued to have very mild degree of headache only. 09/09: Patient states he is feeling well today. No fever or chills, minimal headache. He has been seen by Dr. Sharif with recommendations for 3 doses of IV acyclovir and 7day course of Valtrex. No prophylactic treatment. Plan will be for patient to have prescription available for valtrex to start if symptoms develop. Patient will be discharged home today in stable condition. Discharge diagnoses: 1 HSV 2 meningitis 2 severe headache 3 hypertension 4 hyperlipidemia 5 generalized anxiety disorder 6 hyperglycemia Discharge plan: Home Impression and plan of care have been directed as dictated by the signing physician. Dayna Barrera nurse practitioner acting as scribe for signing physician. Patient Condition at Discharge: Good Plan - Discharge Summary New Discharge Prescriptions: Continue Atorvastatin [Lipitor] 10 mg PO HS Aspirin EC [Ecotrin Low Dose] 81 mg PO HS amLODIPine BESYLATE [Norvasc] 5 mg PO DAILY Multivitamin/Iron/Folic Acid [Centrum Complete Multivit Tab] 1 tab PO DAILY Temazepam [Restoril] 15 mg PO HS PRN PRN Reason: Insomnia Naproxen Sodium [Aleve] 220 mg PO DAILY ALPRAZolam [Xanax] 0.25 mg PO BID PRN PRN Reason: Anxiety Losartan Potassium 50 mg PO DAILY Ondansetron Odt [Zofran ODT] 4 mg PO Q8HR PRN #21 tab PRN Reason: Nausea Changed valACYclovir HCL [Valacyclovir] 1,000 mg PO TID #30 tablet Discharge Medication List Aspirin EC [Ecotrin Low Dose] 81 mg PO HS 06/23/14 [History] Atorvastatin [Lipitor] 10 mg PO HS 06/23/14 [History] amLODIPine BESYLATE [Norvasc] 5 mg PO DAILY 06/23/14 [History] Multivitamin/Iron/Folic Acid [Centrum Complete Multivit Tab] 1 tab PO DAILY 08/28 [History] ALPRAZolam [Xanax] 0.25 mg PO BID PRN 09/04/18 [History] Losartan Potassium 50 mg PO DAILY 09/04/18 [History] Naproxen Sodium [Aleve] 220 mg PO DAILY 09/04/18 [History] Ondansetron Odt [Zofran ODT] 4 mg PO Q8HR PRN #21 tab 09/04/18 [Rx] Temazepam [Restoril] 15 mg PO HS PRN 09/04/18 [History] valACYclovir HCL [Valacyclovir] 1,000 mg PO TID #30 tablet 09/09/18 [Rx] Follow up Appointment(s)/Referral(s): Khanh Gregory MD [Primary Care Provider] - 1 Week (office closed from noon till 1) Patient Instructions/Handouts: Genital Herpes Simplex (DC), Encephalopathy (DC) Discharge Disposition: HOME SELF-CARE
== END 2018-09-09 13:59 | disposition home or self-care (01) | DRG 76 ==
LOC: EC 16:21 → 4MS4W 19:01
PROVIDERS: ADMIT Internal Medicine Geriatric Medicine; ATTEND Internal Medicine Geriatric Medicine
DX: B00.3 Herpesviral meningitis (principal); E78.5 Hyperlipidemia, unspecified; F17.290 Nicotine dependence, other tobacco product, uncomplicated; F41.1 Generalized anxiety disorder; G47.33 Obstructive sleep apnea (adult) (pediatric); I10 Essential (primary) hypertension; N40.0 Benign prostatic hyperplasia without lower urinary tract symptoms; H26.9 Unspecified cataract; M19.90 Unspecified osteoarthritis, unspecified site; R73.9 Hyperglycemia, unspecified; Z79.82 Long term (current) use of aspirin; Z79.899 Other long term (current) drug therapy; Z96.641 Presence of right artificial hip joint; Z86.61 Personal history of infections of the central nervous system; Z91.030 Bee allergy status; Z86.010 Personal history of colon polyps; Z82.61 Family history of arthritis; Z82.3 Family history of stroke; Z80.9 Family history of malignant neoplasm, unspecified
CPT/HCPCS: 36415; 80053; 81003; 83605; 83735; 84100; 84484; 85025; 85610; 85730; 87040; 87086; 93005; 96361; 96374; 99285

== ENCOUNTER → 2019-05-25 | Outpatient (CLI) | payer OTHER | END | disposition home or self-care (01) | LOC: RADNMMAIN 09:50 | PROVIDERS: ATTEND Internal Medicine Geriatric Medicine | DX: Z53.9 Procedure and treatment not carried out, unspecified reason (principal) ==

== ENCOUNTER → 2019-06-01 | Outpatient (CLI) | payer OTHER ==
--- NOTE | 2019-06-01 13:03 | US ---
EXAMINATION TYPE: US renal artery duplex complete DATE OF EXAM: 06/01/2019 COMPARISON: NONE CLINICAL HISTORY: I10 hypertension. Uncontrolled hypertension x 3 weeks per patient. MEASUREMENTS: RENAL SIZE: Rt Kidney: 9.7 x 5.3 x 4.8cm Lt Kidney: 9.9 x 5.6 x 5.5cm RESISTANCE INDEX Right: 0.59 Left: 0.56 RA/AO RATIO (< 3.5 ) Right: 1.6 Left: 1.5 RA VELOCITY ( < 180 cm/s): proximal right renal artery not seen and may be due to overlying bowel gas . Turbulent renal artery color flow with elevated PSV is noted in bilateral mid renal arteries. Right: 168.5 mid Left: 161.5 mid Aorta: size is wnl ; upper aorta is obscured by overlying bowel gas. Renal US: no hydronephrosis or masses seen. Adjacent to right renal periphery in lower pole is cresc ent shaped hypoechoic area, sonographic "sweat sign", suggestive of renal failure. IMPRESSION: Suboptimal study. Cannot exclude significant stenosis at origin of renal arteries. Advise CTA or MRA of the abdomen to better evaluate.
== END | disposition home or self-care (01) ==
LOC: RADUSWWP 10:08
PROVIDERS: ATTEND Internal Medicine Geriatric Medicine
DX: I10 Essential (primary) hypertension (principal)
CPT/HCPCS: 93975

== ENCOUNTER → 2019-06-24 | Outpatient (CLI) | payer BC ==
--- NOTE | 2019-06-28 09:30 | ECHOS ---
STRESS ECHOCARDIOGRAM INDICATION: Chest pain. AGE: 64 SEX: M HT: 74" WT: 235 PROTOCOL: Stress Echo STAGE: IV DURATION OF EXERCISE: 10 minutes HEART RATE REST: 86 BLOOD PRESSURE REST: 164/99 MAXIMUM HEART RATE ACHIEVED: 156 MAXIMUM BLOOD PRESSURE: 201/97 85% MPHR: 133 100% MPHR: 157 METS: 11.5 STRESS DATA: Heart rate is 86, pressure is 164/99 mmHg. Baseline EKG showed sinus rhythm. The patient exercised on the treadmill per Pancho protocol for 10 minutes and achieved 11.5 METs. Max heart rate was 156 which is about 99% of maximum predicted heart rate. Maximum blood pressure was 201/97 mmHg. Clinically the patient did not have any symptoms. The EKG did not show any significant ST or T-wave abnormalities concerning for ischemia. ECHOCARDIOGRAM IMAGES: On echocardiogram images from parasternal long axis view, parasternal short axis apical 4 chamber and apical 2 chamber obtained as the baseline images, at peak heart rate as well as on recovery and the echocardiogram images showed good augmentation in the left ventricular systolic function without any evidence of wall motion abnormalities concerning for ischemia. CONCLUSION: 1. Excellent exercise tolerance. 2. Normal EKG in response to exercise. 3. Normal echocardiogram in response to exercise. MMODL / IJN: [id number] /
== END | disposition home or self-care (01) ==
LOC: RADNMMAIN 09:41
PROVIDERS: ATTEND Internal Medicine Geriatric Medicine
DX: R07.9 Chest pain, unspecified (principal)
CPT/HCPCS: 93351; Q9950

== ENCOUNTER → 2020-02-08 | Outpatient (CLI) | payer BC ==
--- NOTE | 2020-02-09 11:01 | ECHOF ---
Referral Reason:I10 Essential hypertension MEASUREMENTS -------- HEIGHT: 182.9 cm WEIGHT: 111.1 kg BP: RVIDd: 3.5 cm (< 3.3) IVSd: 1.4 cm (0.6 - 1.1) LVIDd: 4.5 cm (3.9 - 5.3) LVPWd: 1.2 cm (0.6 - 1.1) IVSs: 1.8 cm LVIDs: 3.7 cm LVPWs: 1.3 cm LA Diam: 4.3 cm (2.7 - 3.8) LAESV Index (A-L): 31.32 ml/m Ao Diam: 3.9 cm (2.0 - 3.7) AV Cusp: 1.9 cm (1.5 - 2.6) MV EXCURSION: 19.544 mm (> 18.000) MV EF SLOPE: 87 mm/s (70 - 150) EPSS: 0.7 cm MV E Jacques: 0.42 m/s MV DecT: 249 ms MV A Jacques: 0.61 m/s MV E/A Ratio: 0.70 RAP: 5.00 mmHg RVSP: 18.23 mmHg FINDINGS -------- Sinus rhythm. This was a technically good study. The left ventricular size is normal. There is mild concentric left ventricular hypertrophy. Overa ll left ventricular systolic function is normal with, an EF between 55 - 60 %. The right ventricle is normal in size. The left atrium is mildly dilated. LA is midly dilated 29-33ml/m2. The right atrial size is normal. The aortic valve is trileaflet, and appears structurally normal. No aortic stenosis or regurgitation. Mild mitral regurgitation is present. Mild tricuspid regurgitation present. Right ventricular systolic pressure is normal at < 35 mmHg. There is no pulmonic regurgitation present. The aortic root size is normal. There is no pericardial effusion. CONCLUSIONS -------- 1. Sinus rhythm. 2. This was a technically good study. 3. The left ventricular size is normal. 4. There is mild concentric left ventricular hypertrophy. 5. Overall left ventricular systolic function is normal with, an EF between 55 - 60 %. 6. The right ventricle is normal in size. 7. The left atrium is mildly dilated. 8. LA is midly dilated 29-33ml/m2. 9. The right atrial size is normal. 10. Mild mitral regurgitation is present. 11. Mild tricuspid regurgitation present. 12. Right ventricular systolic pressure is normal at < 35 mmHg. 13. There is no pulmonic regurgitation present. CLIENT EXPERIENCE ADMINISTRATOR: Carolina Vidal RDCS
== END | disposition home or self-care (01) ==
LOC: RADECHMAIN 13:44
PROVIDERS: ATTEND Internal Medicine Geriatric Medicine
DX: I08.1 Rheumatic disorders of both mitral and tricuspid valves (principal)
CPT/HCPCS: 93306

== ENCOUNTER → 2021-04-19 | Outpatient (CLI) | payer MEDICARE, BC ==
--- NOTE | 2021-04-19 11:18 | US ---
EXAMINATION TYPE: US liver DATE OF EXAM: 04/19/2021 COMPARISON: NONE CLINICAL HISTORY: 65-year-old male R93.2 ABNORMAL FINDINGS ON DIAGNOSTIC IMAGING. TECHNIQUE: Multiple sonographic images of the right upper quadrant are obtained. FINDINGS: EXAM MEASUREMENTS: Liver Length: 17.2 cm Gallbladder Wall: 0.3 cm CBD: 6.8 mm Right Kidney: 10.5 x 5.1 x 5.0 cm A P Manager notes:bowel gas limits exam Pancreas: limited views show no gross abnormality. The head and tail is largely obscured from bowel gas. Liver: Borderline enlarged at 17.2 cm. Slight heterogeneous echotexture with increased echogenicity. Gallbladder: Gallbladder wall upper limits of normal at 3 mm. No abnormal distention, pericholecysti c fluid, or shadowing calculi. Evidence for sonographic Perry's sign: no CBD: Borderline to mildly dilated. Right Kidney: No hydronephrosis. IMPRESSION: 1. Borderline hepatomegaly (17.2 cm) with suspected mild to moderate hepatic steatosis. Correlate wit h LFTs, lipid profile, and patient risk factors. 2. No gallstones. 3. Borderline to mildly dilated bile duct may be age-related change. Correlate with alkaline phosphat ase and bilirubin levels to exclude early biliary obstruction.
== END | disposition home or self-care (01) ==
LOC: RADUSWWP 10:01
PROVIDERS: ATTEND Internal Medicine Geriatric Medicine
DX: R93.2 Abnormal findings on diagnostic imaging of liver and biliary tract (principal); R16.0 Hepatomegaly, not elsewhere classified; K83.8 Other specified diseases of biliary tract
CPT/HCPCS: 76705

== ENCOUNTER → 2021-05-03 | Outpatient (CLI) | payer MEDICARE, BC ==
--- NOTE | 2021-05-03 13:46 | XR ---
EXAMINATION TYPE: XR cervical spine comp DATE OF EXAM: 05/03/2021 COMPARISON: None HISTORY: 66-year-old male M5 4.2 TECHNIQUE: 5 views FINDINGS: No predental space widening or prevertebral soft tissue swelling. Scattered facet and uncovertebral j oint arthropathy. Degenerative trace grade 1 anterolisthesis C4-C5 and C5-C6. Also C7-T1. Normal odon toid view. On the right, resulting in mild to moderate bony neural foraminal narrowing at C3-C4 and C4-C5. On the left, changes resulting mild to moderate bony neural foraminal narrowing at C4-C5 and C7-T1. IMPRESSION: 1. Facet and uncovertebral joint arthropathy. 2. Degenerative grade 1 anterolisthesis C4-C5, C5-C6, and C7-T1. 3. Variable mild to moderate bony neuroforaminal narrowing at a couple levels as outlined above.
== END | disposition home or self-care (01) ==
LOC: RADXRMAIN 10:39
PROVIDERS: ATTEND Nurse Practitioner Gerontology
DX: M43.12 Spondylolisthesis, cervical region (principal); M47.892 Other spondylosis, cervical region
CPT/HCPCS: 72050

== ENCOUNTER → 2021-07-23 | Outpatient (CLI) | payer MEDICARE, BC ==
--- NOTE | 2021-07-23 14:34 | XR ---
EXAM TYPE: LUMBAR SPINE X RAY SERIES COMPARISON: NONE HISTORY: Numbness TECHNIQUE: 3 views are submitted. FINDINGS: Alignment is anatomic. The pedicles are intact. The transverse processes are intact. There is hype rtrophic and degenerative changes most marked at levels T12-L3 and L4-S1. Facet arthropathy seen at l evels L3-S1 with suspected foraminal encroachment at L4-5 and L5-S1. Grade 1 anterolisthesis L4 on L5 . IMPRESSION: 1. Multilevel hypertrophic and degenerative changes. There is a slight anterolisthesis grade 1 of L4 on L5. Consider MRI follow-up.
== END | disposition home or self-care (01) ==
LOC: RADXRMAIN 14:06
PROVIDERS: ATTEND Internal Medicine Geriatric Medicine
DX: M51.36 Other intervertebral disc degeneration, lumbar region (principal); M48.00 Spinal stenosis, site unspecified
CPT/HCPCS: 72100

== ENCOUNTER → 2022-05-06 | Outpatient (CLI) | payer MEDICARE, BC ==
--- NOTE | 2022-05-06 13:06 | US ---
EXAMINATION TYPE: US kidneys/renal and bladder DATE OF EXAM: 05/06/2022 COMPARISON: NONE CLINICAL HISTORY: N17.9 Acute kidney failure, unspecified. abn renal function test. EXAM MEASUREMENTS: Right Kidney: 10.9 x 4.8 x 4.0 cm Left Kidney: 10.6 x 4.5 x 4.4 cm Right Kidney: No hydronephrosis or masses seen Left Kidney: No hydronephrosis or masses seen Bladder: anechoic Bilateral Jets seen: Left only. There is no evidence for hydronephrosis at this point in time. No nephrolithiasis is seen. No juanita s are identified. The urinary bladder is anechoic. IMPRESSION: No evidence for obstructive uropathy.
== END | disposition home or self-care (01) ==
LOC: RADUSWWP 12:05
PROVIDERS: ATTEND Internal Medicine Geriatric Medicine
DX: N17.9 Acute kidney failure, unspecified (principal)
CPT/HCPCS: 76770

== ENCOUNTER → 2022-05-31 | Outpatient (CLI) | payer MEDICARE, BC ==
[2022-05-31 14:42] LABS: Basophils # (A) 0.04 X 10*3/uL (0.00-0.10); Basophils % (A) 0.5 %; Eosinophils # (A) 0.24 X 10*3/uL (0.04-0.35); Eosinophils % (A) 3.2 %; HCT 43.8 % (39.6-50.0); HGB 15.1 g/dL (13.0-17.0); Immature Grans, Automated 0.4 %; Lymphocytes # (A) 2.29 X 10*3/uL (0.90-5.00); Lymphocytes % (A) 30.1 %; MCH 32.2 pg (27.0-32.0); MCHC 34.5 g/dL (32.0-37.0); MCV 93.4 fL (80.0-97.0); Mean Platelet Volume 11.2 fL (9.5-12.2); Monocytes # (A) 0.61 X 10*3/uL (0.20-1.00); NRBC Per 100 WBC 0 /100 WBCS (0.0-0.0); Neutrophils % (A) 57.8 %; Platelet Count 275 X 10*3/uL (140-440); RBC 4.69 X 10*6/uL (4.40-5.60); RDW 13.2 % (11.5-14.5); WBC 7.61 X 10*3/uL (4.50-10.00)
[2022-05-31 15:49] LABS: % Iron Saturation 37.87 (15.00-50.00); African American GFR (CKD) 60.3 (60.0-200.0); Albumin 4.5 g/dL (3.8-4.9); Albumin/Globulin Ratio 1.8 (1.60-3.17); Anion Gap 11.3 mmol/L (10.00-18.00); BUN/Creat Ratio 17.07 Ratio (12.00-20.00); Blood Urea Nitrogen 23.9 mg/dL (9.0-27.0); Calcium 9.7 mg/dL (8.7-10.3); Carbon Dioxide 21.7 mmol/L (20.0-27.5); Globulin 2.5 g/dL (1.6-3.3); Magnesium 1.8 mg/dL (1.5-2.4); Phosphorus 2.8 mg/dL (2.4-5.1); Potassium 4.6 mmol/L (3.5-5.5); Total Bilirubin 0.5 mg/dL (0.30-1.20); Uric Acid 5.2 mg/dL (3.7-8.7)
== END | disposition home or self-care (01) ==
LOC: LABWHC1 08:40
PROVIDERS: ATTEND Internal Medicine
DX: N18.30 Chronic kidney disease, stage 3 unspecified (principal); D64.9 Anemia, unspecified; E55.9 Vitamin D deficiency, unspecified; N25.81 Secondary hyperparathyroidism of renal origin; M10.9 Gout, unspecified
CPT/HCPCS: 36415; 80053; 82306; 82728; 83540; 83550; 83735; 83970; 84100; 84550; 85025

== ENCOUNTER → 2023-01-21 | Outpatient (CLI) | payer MEDICARE, BC ==
[2023-01-21 16:36] LABS: Basophils # (A) 0.03 X 10*3/uL (0.00-0.10); Basophils % (A) 0.5 %; Eosinophils # (A) 0.21 X 10*3/uL (0.04-0.35); Eosinophils % (A) 3.5 %; HCT 45.1 % (39.6-50.0); HGB 14.8 d/dL (12.0-15.0); Lymphocytes # (A) 1.74 X 10*3/uL (0.90-5.00); Lymphocytes % (A) 29.1 %; MCH 30.9 pg (27.0-32.0); MCHC 32.8 d/dL (32.0-37.0); MCV 94.2 FL (80.0-97.0); Monocytes # (A) 0.52 X 10*3/uL (0.20-1.00); Monocytes % (A) 8.7 %; NRBC Per 100 WBC 0 X 10*3/uL (0.00-0.01); Neutrophils # (A) 3.47 X 10*3/uL (1.80-7.70); Platelet Count 217 X 10*3/uL (140-440); RBC 4.79 X 10*6/uL (4.40-5.60); RDW 14.5 % (11.5-14.5); WBC 5.98 X 10*3/uL (4.50-10.00)
[2023-01-21 17:56] LABS: ALT 15 U/L (10-49); AST 15 U/L (14-35); Albumin 4.6 d/dL (3.8-4.9); Alkaline Phosphatase 50 U/L (41-126); BUN/Creat Ratio 14.23 Ratio (12.00-20.00); Blood Urea Nitrogen 18.5 mg/dL (9.0-27.0); Calcium 9.7 mg/dL (8.7-10.3); Chloride 106 mmol/L (96-109); Chol/HDL Ratio 3.19 Ratio; Globulin 2.3 d/dL (1.6-3.3); Glucose 112 mg/dL (70-110); LDL Cholesterol,Calculated 92.7 mg/dL (0.0-131.0); Potassium 4.4 mmol/L (3.5-5.5); Sodium 139 mmol/L (135-145); Total Bilirubin 0.6 mg/dL (0.3-1.2); Total Protein 6.9 d/dL (6.2-8.2); Uric Acid 3.7 mg/dL (3.7-8.7)
== END | disposition home or self-care (01) ==
LOC: LABWHC1 08:15
PROVIDERS: ATTEND Internal Medicine Geriatric Medicine
DX: E78.2 Mixed hyperlipidemia (principal); N40.0 Benign prostatic hyperplasia without lower urinary tract symptoms; N18.9 Chronic kidney disease, unspecified; R73.9 Hyperglycemia, unspecified
CPT/HCPCS: 36415; 80053; 80061; 83036; 84153; 84550; 85025

== ENCOUNTER → 2023-10-09 | Outpatient (CLI) | payer MEDICARE, BC ==
--- NOTE | 2023-10-09 20:17 | US ---
EXAMINATION TYPE: US kidneys/renal and bladder DATE OF EXAM: 10/09/2023 COMPARISON: NONE CLINICAL INDICATION: Male, 68 years old with history of N18.31 CHRONIC KIDNEY DISEASE, STAGE 3A; CKD EXAM MEASUREMENTS: Right Kidney: 10.8 x 4.6 x 5.1 cm Left Kidney: 11.5 x 5.6 x 5.0 cm Right Kidney: no evidence of hydronephrosis Left Kidney: no evidence of hydronephrosis Bladder: appears wnl Bilateral Jets seen: no IMPRESSION: 1. Unremarkable renal ultrasound
== END | disposition home or self-care (01) ==
LOC: RADUSWWP 14:24
PROVIDERS: ATTEND Internal Medicine Nephrology
DX: N18.31 Chronic kidney disease, stage 3a (principal)
CPT/HCPCS: 76770

== ENCOUNTER 2023-11-23 10:34 | Emergency (ER) | payer MEDICARE, BC ==
--- NOTE | 2023-11-23 11:35 | ED ---
Headache HPI - General Chief Complaint: Headache Stated Complaint: nausea and dizzy Time Seen by Provider: 11/23/23 10:50 Source: patient, RN notes reviewed Mode of arrival: ambulatory Limitations: no limitations - History of Present Illness Initial Comments: This is a 68-year-old male with a history of hypertension and hyperlipidemia emergency department chief complaint of headaches, intermittent dizziness, and bodyaches over the last four days. He states that the headache is located in the front of his head and will experience feelings of dizziness while he is laying down at night described as a 'wooshing' sensation. He denies tinnitus, chest pain or pressure, palpitations. He endorses feeling of intermittent nausea denies emesis. Has a history of viral meningitis and 2019, but denies symptoms of photophobia, neck pain, fatigue and weakness as compared to previous illness. He denies rhinorrhea, cough, congestion. Patient denies checking his blood pressure at home stating that he normally runs "fine' when he has doctor appointments. - Related Data Home Medications Medication Instructions Recorded Confirmed Aspirin EC [Ecotrin Low Dose] 81 mg PO HS 06/23/14 09/07/18 Atorvastatin [Lipitor] 10 mg PO HS 06/23/14 09/07/18 amLODIPine BESYLATE [Norvasc] 5 mg PO DAILY 06/23/14 09/07/18 Multivitamin/Iron/Folic Acid 1 tab PO DAILY 09/12/14 09/07/18 [Centrum Complete Multivit Tab] ALPRAZolam [Xanax] 0.25 mg PO BID PRN 09/04/18 09/07/18 Losartan Potassium 50 mg PO DAILY 09/04/18 09/07/18 Naproxen Sodium [Aleve] 220 mg PO DAILY 09/04/18 09/07/18 Temazepam [Restoril] 15 mg PO HS PRN 09/04/18 09/07/18 Previous Rx's Medication Instructions Recorded Ondansetron Odt [Zofran ODT] 4 mg PO Q8HR PRN #21 tab 09/04/18 valACYclovir HCL [Valacyclovir] 1,000 mg PO TID #30 tablet 09/09/18 Allergies Allergy/AdvReac Type Severity Reaction Status Date / Time venom-honey bee Allergy Rash/Hives Verified 11/23/23 10:44 [bee venom (honey bee)] Review of Systems ROS Statement: Those systems with pertinent positive or pertinent negative responses have been documented in the HPI. ROS Other: All systems not noted in ROS Statement are negative. Past Medical History Past Medical History: Hyperlipidemia, Hypertension, Osteoarthritis (OA), Prostate Disorder, Sleep Apnea/CPAP/BIPAP Additional Past Medical History / Comment(s): hx of having viral menigits x2 in past, pre skin ca removed, beginnings of cataracts, constipated last bm was friday05-26-16 History of Any Multi-Drug Resistant Organisms: None Reported Past Surgical History: Joint Replacement, Orthopedic Surgery, Tonsillectomy Additional Past Surgical History / Comment(s): 09/12/14 Total R hip arthroplasty. michele rotator cuff sx,06/2014 rt hip arthroscopy and osteoplasty femoral head,colonoscopy/polypectomy(benign) Past Anesthesia/Blood Transfusion Reactions: Motion Sickness, Postoperative Nausea & Vomiting (PONV) Past Psychological History: No Psychological Hx Reported Smoking Status: Current some day smoker Past Alcohol Use History: Occasional Past Drug Use History: None Reported - Past Family History Brother(s) Family Medical History: Cancer Additional Family Medical History / Comment(s): TUMOR ON ADRENAL GLAND Father Family Medical History: CVA/TIA Additional Family Medical History / Comment(s): at age 53 Mother Family Medical History: Osteoarthritis (OA) Additional Family Medical History / Comment(s): djd, knees and hip replacments. mom is alive adn at age 97 still lives by herself. General Exam Limitations: no limitations General appearance: alert, in no apparent distress Head exam: Present: atraumatic, normocephalic, normal inspection Eye exam: Present: normal appearance, PERRL, EOMI. Absent: scleral icterus, conjunctival injection, periorbital swelling ENT exam: Present: normal exam, mucous membranes moist Neck exam: Present: normal inspection. Absent: tenderness, meningismus, lymphadenopathy Respiratory exam: Present: normal lung sounds bilaterally. Absent: respiratory distress, wheezes, rales, rhonchi, stridor Cardiovascular Exam: Present: regular rate, normal rhythm, bradycardia, normal heart sounds. Absent: systolic murmur, diastolic murmur, rubs, gallop, clicks GI/Abdominal exam: Present: soft, normal bowel sounds. Absent: distended, tenderness, guarding, rebound, rigid Extremities exam: Present: normal inspection, full ROM, normal capillary refill. Absent: tenderness, pedal edema, joint swelling, calf tenderness Back exam: Present: normal inspection Neurological exam: Present: alert, oriented X3, CN II-XII intact Psychiatric exam: Present: normal affect, normal mood Skin exam: Present: warm, dry, intact, normal color. Absent: rash Course Vital Signs 11/23/23 11/23/23 10:42 13:55 Temperature 98.6 F 98.0 F Pulse Rate 96 56 L Respiratory 20 16 Rate Blood Pressure 181/93 191/93 O2 Sat by Pulse 94 L 98 Oximetry Medical Decision Making - Medical Decision Making Was pt. sent in by a medical professional or institution (, PA, [facility], urgent care, hospital, or snf...) When possible be specific @ -No Did you speak to anyone other than the patient for history (EMS, parent, family, police, friend...)? What history was obtained from this source @ -No Did you review nursing and triage notes (agree or disagree)? Why? @ -I reviewed and agree with nursing and triage notes Were old charts reviewed (outside hosp., previous admission, EMS record, old EKG, old radiological studies, urgent care reports/EKG's, snf records)? Report findings @ -No old charts were reviewed Differential Diagnosis (chest pain, altered mental status, abdominal pain women, abdominal pain men, vaginal bleeding, weakness, fever, dyspnea, syncope, headache, dizziness, GI bleed, back pain, seizure, CVA, palpatations, mental health, musculoskeletal)? @ -Differential Headache: Migraine, tension, cluster, carbon monoxide, central venous thrombosis, pension karma temporal arteritis, acute closure glaucoma, intercranial hemorrhage, mastoiditis, sinusitis, head injury, this is not meant to be an all-inclusive list. EKG interpreted by me (3pts min.). @ -Completed at 1227, sinus bradycardia, ventricular 55, [place] 182, QTc 437. No acute signs of ischemia. X-rays interpreted by me (1pt min.). @ -None done CT interpreted by me (1pt min.). @ -CT of the brain without contrast reveals mild bifrontal cerebral atrophy with no acute intracranial abnormality noted. U/S interpreted by me (1pt. min.). @ -None done What testing was considered but not performed or refused? (CT, X-rays, U/S, labs)? Why? @ -None What meds were considered but not given or refused? Why? @ -None Did you discuss the management of the patient with other professionals (professionals i.e. , PA, [facility] [facility], lab, RT, psych nurse, 7th grade social studies teacher, blood tester, teacher, philanthropy officer, case picker)? Give summary @ -No Was smoking cessation discussed for >3mins.? @ -No Was critical care preformed (if so, how long)? @ -No Were there social determinants of health that impacted care today? How? (Homelessness, low income, unemployed, alcoholism, drug addiction, transportation, low edu. Level, literacy, decrease access to med. care, alf, rehab)? @ -No Was there de-escalation of care discussed even if they declined (Discuss DNR or withdrawal of care, Hospice)? DNR status @ -No What co-morbidities impacted this encounter? (DM, HTN, Smoking, COPD, CAD, Cancer, CVA, ARF, Chemo, Hep., AIDS, mental health diagnosis, sleep apnea, morbid obesity)? @ -None Was patient admitted / discharged? Hospital course, mention meds given and route, prescriptions, significant lab abnormalities, going to OR and other pertinent info. @ -68-year-old male with complaint of headache and bodyaches over the past 4 days. On examination there is no notable neurological deficits. Shared decision making with the patient due to past history of meningitis in addition to patient experiencing headache over the past few days that is uncommon for him CT of the head will be ordered at this time. And basic laboratory workup. Patient CBC and CMP unremarkable. Additionally CT showed no acute signs of intracranial abnormalities. Physical examination patient was negative for acute neurological deficits. on reexamination patient states that he is feeling mildly better. At this time patient is stable for discharge home. Recommend that he follows up with his primary care provider within the next 1 to 3 days for further evaluation due to FINDINGS of elevated blood pressure and dizziness. All questions answered at bedside. Strict return parameters as per the patient. Case discussed with Dr. Roman. Undiagnosed new problem with uncertain prognosis? @ -No Drug Therapy requiring intensive monitoring for toxicity (Heparin, Nitro, Insulin, Cardizem)? @ -No Were any procedures done? @ -No Diagnosis/symptom? @ -Headache, intermittent dizziness, hypertension Acute, or Chronic, or Acute on Chronic? @ -Acute Uncomplicated (without systemic symptoms) or Complicated (systemic symptoms)? @ -Uncomplicated Side effects of treatment? @ -No Exacerbation, Progression, or Severe Exacerbation? @ -No Poses a threat to life or bodily function? How? (Chest pain, [place], [place], pneumonia, PE, COPD, DKA, ARF, appy, cholecystitis, CVA, Diverticulitis, Homicidal, Suicidal, threat to staff... and all critical care pts) @ -No - Lab Data Result diagrams: 11/23/23 11:51 11/23/23 11:51 Lab Results 11/23/23 11/23/23 11/23/23 Range/Units 11:51 11:51 12:24 WBC 6.1 (3.8-10.6) k/uL RBC 4.55 (4.30-5.90) m/uL Hgb 14.6 (13.0-17.5) gm/dL Hct 43.5 (39.0-53.0) % MCV 95.5 (80.0-100.0) fL MCH 32.0 (25.0-35.0) pg MCHC 33.5 (31.0-37.0) g/dL RDW 13.0 (11.5-15.5) % Plt Count 208 (150-450) k/uL MPV 8.2 Neutrophils % 58 % Lymphocytes % 27 % Monocytes % 7 % Eosinophils % 3 % Basophils % 1 % Neutrophils # 3.5 (1.3-7.7) k/uL Lymphocytes # 1.7 (1.0-4.8) k/uL Monocytes # 0.5 (0-1.0) k/uL Eosinophils # 0.2 (0-0.7) k/uL Basophils # 0.0 (0-0.2) k/uL Sodium 137 (137-145) mmol/L Potassium 4.4 (3.5-5.1) mmol/L Chloride 112 H (98-107) mmol/L Carbon Dioxide 19 L (22-30) mmol/L Anion Gap 6 mmol/L BUN 15 (9-20) mg/dL Creatinine 1.09 (0.66-1.25) mg/dL Est GFR (CKD-EPI)AfAm 81 (>60 ml/min/1.73 sqM) Est GFR (CKD-EPI)NonAf 70 (>60 ml/min/1.73 sqM) Glucose 115 H (74-99) mg/dL Calcium 9.2 (8.4-10.2) mg/dL Magnesium 1.8 (1.6-2.3) mg/dL Total Bilirubin 0.5 (0.2-1.3) mg/dL AST 24 (17-59) U/L ALT 15 (4-49) U/L Alkaline Phosphatase 69 (38-126) U/L Total Protein 6.8 (6.3-8.2) g/dL Albumin 4.1 (3.5-5.0) g/dL Influenza Type A (PCR) Not Detected (Not Detectd) Influenza Type B (PCR) Not Detected (Not Detectd) RSV (PCR) Not Detected (Not Detectd) SARS-CoV-2 (PCR) Not Detected (Not Detectd) Disposition Clinical Impression: Headache, Body aches, Hypertension Narrative: Please return to the Emergency Department if symptoms worsen or any other concerns. Follow-up with your primary care provider as scheduled or sooner if possible. Disposition: HOME SELF-CARE Condition: Good Instructions (If sedation given, give patient instructions): Acute Headache (ED) Is patient prescribed a controlled substance at d/c from ED?: No Referrals: Khanh Gregory MD [Primary Care Provider] - 1-2 days Time of Disposition: 13:14
[2023-11-23] MEDS: ONDANSETRON 4 MG/2 ML VIAL IVP STA (11:48)
[2023-11-23] MEDS: SODIUM CHLORIDE 0.9% 1,000 ML IV STA (11:49)
[2023-11-23 11:58] LABS: Basophils % (A) 1 %; Eosinophils # (A) 0.2 k/uL (0-0.7); Eosinophils % (A) 3 %; HCT 43.5 % (39.0-53.0); HGB 14.6 gm/dL (13.0-17.5); Lymphocytes # (A) 1.7 k/uL (1.0-4.8); Lymphocytes % (A) 27 %; MCHC 33.5 g/dL (31.0-37.0); MCV 95.5 fL (80.0-100.0); Mean Platelet Volume 8.2; Monocytes # (A) 0.5 k/uL (0-1.0); Monocytes % (A) 7 %; Neutrophils # (A) 3.5 k/uL (1.3-7.7); Neutrophils % (A) 58 %; Platelet Count 208 k/uL (150-450); RBC 4.55 m/uL (4.30-5.90); WBC 6.1 k/uL (3.8-10.6)
[2023-11-23 12:06] LABS: ALT 15 U/L (4-49); African American GFR (CKD) 81 (>60 ml/min/1.73 sqM); Albumin 4.1 g/dL (3.5-5.0); Anion Gap 6 mmol/L; Blood Urea Nitrogen 15 mg/dL (9-20); Calcium 9.2 mg/dL (8.4-10.2); Carbon Dioxide 19 mmol/L (22-30); Chloride 112 mmol/L (98-107); Glucose 115 mg/dL (74-99); Non-African American GFR(CKD) 70 (>60 ml/min/1.73 sqM); Sodium 137 mmol/L (137-145); Total Bilirubin 0.5 mg/dL (0.2-1.3); Total Protein 6.8 g/dL (6.3-8.2)
[2023-11-23 12:14] LABS: AST 24 U/L (17-59); Alkaline Phosphatase 69 U/L (38-126); Magnesium 1.8 mg/dL (1.6-2.3); Potassium 4.4 mmol/L (3.5-5.1)
--- NOTE | 2023-11-23 12:40 | CT ---
EXAMINATION TYPE: CT brain wo con DATE OF EXAM: 11/23/2023 COMPARISON: 09/04/2018 HISTORY: 68-year-old male Acute headache, dizziness TECHNIQUE: Examination was done in axial plane without intravenous contrast. Coronal and sagittal r econstructions performed. CT DLP: 1187.4 mGycm Automated exposure control for dose reduction was used. FINDINGS: There is no evidence of acute intracranial hemorrhage, acute ischemic changes, mass, mass-effect, or extra-axial fluid collection. There is no effacement of cerebral sulci or basal subarachnoid cister ns. There is no hydrocephalus. There is no midline shift. Nino-white matter distinction is preserv ed. Mild bifrontal cerebral cortical volume loss. Benign basal ganglia calcifications Leftward nasal septal deviation. Moderate mucosal thickening ethmoid air cells and left maxillary sin us. Mild right maxillary sinus and sphenoid sinuses. Mastoid air cells are well pneumatized. Orbits a nd globes are intact. IMPRESSION: 1. Mild bifrontal cerebral atrophy. 2. No acute intracranial abnormality seen. 3. Moderate chronic ethmoid and left maxillary sinus disease.
[2023-11-23 14:21] VITALS: BP 191/93; PULSE 56; RESP 16; TEMP 98
== END 2023-11-23 13:55 | disposition home or self-care (01) ==
LOC: EC 10:34
DX: R51.9 Headache, unspecified (principal); I10 Essential (primary) hypertension; F17.200 Nicotine dependence, unspecified, uncomplicated; Z91.030 Bee allergy status
CPT/HCPCS: 36415; 93005; 80053; 83735; 85025; 87636; 70450; 99284; 96374; 96361; J2405

== ENCOUNTER → 2024-02-09 | Outpatient (CLI) | payer MEDICARE, BC ==
--- NOTE | 2024-02-09 19:10 | MR ---
EXAMINATION TYPE: MR abdomen wo/w con DATE OF EXAM: 02/09/2024 3:23 PM CLINICAL INDICATION:Male, 68 years old with history of I12.9 HYPERTENSIVE CHRONIC KIDNEY DISEASE W ST G 1-; PHH, Hypertension, chronic kidney disease, attention to adrenal glands. COMPARISON: Ultrasound 10/01/2023. TECHNIQUE: Multiplanar multi-sequence imaging was performed without contrast. Post contrast imaging was performed. Post IV contrast subtraction images were also submitted for review. IV Contrast: 10.5 cc Gadavist FINDINGS: LOWER CHEST: No gross irregularity. ABDOMEN Liver: No evidence for hepatic steatosis or cirrhosis. Right hepatic lobe peripheral arterial phase e nhancement which becomes isointense to background signal on delayed imaging likely representing shunt ing phenomenon. Additional area within the posterior right hepatic lobe low T1 high T2 signal most co mpatible with cyst. No abnormal enhancement. Gallbladder and Bile ducts: No evidence for ductal dilation, or biliary stricture or evidence of chol edocholithiasis. The gallbladder is within normal limits. Pancreas: No ductal dilation. No evidence for solid mass. Spleen: Normal for size. Adrenal glands: Unremarkable. Kidneys: No evidence for obstructive uropathy. No suspicious renal masses. Tiny 4 mm subcentimeter le ft renal cyst. Stomach and Bowel: No evidence for bowel wall thickening or evidence for obstruction. Retroperitoneum/Peritoneum: No evidence of pneumoperitoneum or free fluid. Vasculature: No aortic aneurysm. The renal arteries appear patent. Musculoskeletal: The osseous structures appear intact. Lymph Nodes: No gross evidence for lymphadenopathy. Abdominal wall: Unremarkable. IMPRESSION: 1. Adrenal glands appear within normal limits without nodule visualized. No evidence for renal arter y stenosis. 2. No evidence for acute abdominal process. 3. Right posterior hepatic cyst. 4. Tiny subcentimeter probable left renal cyst.
== END | disposition home or self-care (01) ==
LOC: RADMRIMAIN 14:04
PROVIDERS: ATTEND Internal Medicine Geriatric Medicine
DX: I12.9 Hypertensive chronic kidney disease with stage 1 through stage 4 chronic kidney disease, or unspecified chronic kidney disease (principal); K76.89 Other specified diseases of liver; N18.1 Chronic kidney disease, stage 1
CPT/HCPCS: 74183; A9585